=== PATIENT | female | born 1945 | race Caucasian/White ===

== ENCOUNTER 2016-05-31 08:15 | Day surgery (SDC) | payer MEDICARE, OTHER ==
[~2016-05-31 08:15] MED LIST: DIPRIVAN 200 MG/20 ML IV ONE
[2016-05-31] MEDS ORDERED: Lactated Ringers 1,000 ML IV ONE ×2 (08:57→11:33)
[2016-05-31] MEDS ORDERED: TETRACAINE 0.5% STERI-UNIT SOL OP ONE ×2 (09:00)
[2016-05-31] MEDS ORDERED: Lactated Ringers 1,000 ML IV SCH (09:00)
[2016-05-31] MEDS ORDERED: Ak-Dilate OPHTHALMIC*** 0.71 ML, Cyclogyl 1% OPHTH SOL 5 ML 0.71 ML, GATIFLOXACIN 0.5% ... OP ONE ×4 (09:00)
[2016-05-31] MEDS ORDERED: Zofran 4 MG/2 ML VIAL IV PRN (10:00)
[2016-05-31] MEDS ORDERED: ACETAZOLAMIDE 250 MG TABLET PO ONE (10:00)
[2016-05-31] MEDS ORDERED: LIDOCAINE HCL 1% AMPUL 5 ML IJ ONE (10:00)
[2016-05-31] MEDS ORDERED: BSS 500 ML, Fortaz/Tazicef 1 GM** 0.2 G IO ONE ×2 (10:00)
[2016-05-31] MEDS ORDERED: Epinephrine Preservative Free 1 MG/ML INTRAOP ONE (10:00)
[2016-05-31] MEDS ORDERED: BETADINE 5% OPHTHALMIC 30 ML OP ONE (10:00)
--- NOTE | 2016-05-31 12:24 | OP ---
DATE/TIME OF OPERATION: 05/31/2016 1125 TIME DICTATED: 1206 PREOPERATIVE DIAGNOSIS: Senile cataract of right eye. POSTOPERATIVE DIAGNOSIS: Senile cataract of right eye. SURGEON: El Nice MD POSTING CLERK: None. OPERATION: Cataract extraction of right eye with an intraocular lens implant STANDARD COMPLEX ___X___ ANESTHESIA: MAC. ___X___ Monitored anesthesia care in combination with topical and intra-cameral anesthesia (because of the established specific risk of reflux, arrhythmias, or an anxiety attack associated with ocular manipulation as well as difficulty of the order analyst to manage such potentially catastrophic events while simultaneously attempting to complete the surgical procedure, it was deemed necessary for the patient's safety to have an anesthesiologist or a nurse community recreation programmer present during the procedure whenever possible. The anesthesiologist or the nurse community recreation programmer was utilized to monitor and regulate the intravenous sedation of the patient, so the patient was cooperative, relaxed, and comfortable). Topical anesthesia using Tetracaine eye drops together with intra cameral anesthesia using Lidocaine 1% MPF. The nurse was utilized to monitor the patient. ANESTHESIA PROVIDER: Marcos Dolan CRNA. COMPLICATIONS: None. BLOOD LOSS: None. INDICATIONS: The patient is undergoing cataract surgery in the hopes of eliminating the visual complaints and difficulty. PROCEDURE: After arriving at the facility's outpatient surgery area, an IV was started; the patient was given 5 mg of p.o. Versed. (If an anesthesia provider was not monitoring the patient) The patient was then given topical anesthetic Tetracaine eye drops. A cotton pellet was soaked into a solution of a combination of Zymaxid 0.5%, Bharat-Synephrine 2.5% and Ocufen (other drops might have been substituted referenced in the patient's record). The pellet was inserted by the RN into the lower conjunctival cul-de-sac with a sterile forceps and left for 20 minutes. The pellet was then removed by the RN with a sterile forceps before taking the patient to the operating room. The preoperative area nurse identified the patient and marked the correct eye to be operated on. I identified the correct eye to be operated on and marked it appropriately in the outpatient surgery area. The patient was then taken into the operating room. Tetracaine eye drops were installed again in the correct eye. The eyelids and the lashes and the lid margins were scrubbed with Betadine solution. One drop of the diluted Betadine solution was placed in the conjunctival cul-de-sac for 45 seconds and then was irrigated. A drop of Tetracaine Gel was placed in the conjunctival cul-de-sac. The patient's forehead was taped to secure it during the procedure. The patient was monitored. The patient was then draped in the usual way for this procedure. An eye speculum was used to separate the eyelids. The eye was then fixated and a temporal 2.5 mm incision was made in the clear cornea temporally at the limbus. Through the incision, 0.25 cc of 1% non-preserved lidocaine was injected into the anterior chamber for intracameral anesthesia. The anterior chamber was then filled with viscoelastic. __X___ The pupil was small. I felt that it would be safer to mechanically dilate the pupil. A Malyugin ring was used at this point which dilated the pupil. That was removed at the end of the procedure prior to aspiration of the viscoelastic from the anterior chamber and posterior to the intraocular lens implant. The cataract had a great amount of cortical changes. That rendered seeing the anterior capsule difficult for a safe performance of an anterior capsulotomy. I injected an air bubble into the anterior chamber. I then injected 1 ML of vision blue solution into the anterior chamber. The vision blue solution was irrigated from the anterior chamber after 30 seconds. The anterior capsule was stained which facilitated performing the anterior capsulotomy safely. After that was completed, a cystotome was introduced into the anterior chamber and a round anterior capsulotomy was performed. The capsule was removed by a forceps. Hydrodissection was next carried utilizing a 25-gauge cannula and balanced salt solution to delineate the cortical material from the capsule and the nucleus from the cortical material. The nucleus was rotated freely into the capsular bag with no difficulty. The phaco tip of the Som [employer] Phacoemulsifier was introduced into the anterior chamber and two grooves were made into the nucleus 90 degrees apart. Using two spatulas resulted into the nucleus being fractured into four quadrants. The phaco tip was then used to remove each quadrant of the nucleus. Viscoelastic was used during this process to protect the corneal endothelium. Once the entire nucleus was removed, the phaco tip then was removed and the irrigation tip was introduced into the eye and the cortex was removed. The posterior capsule was polished. It was noticed that there was a tear into the posterior capsule with few vitreous strands into the pupil plan. An anterior vitrectomy was performed. A 21.50 diopter, [id number], posterior chamber lens implant, was inspected and found to be grossly normal. The implant was inserted into the implant injector cartridge; Viscoelastic again was introduced into the anterior chamber, which filled the capsular bag. The implant injector's cartridge tip was placed at the limbal wound and the posterior chamber implant was released into the capsular bag and rotated appropriately. The implant was found to be into the capsular bag and it was centered. 0.2 ml of Tri-Moxi was introduced via 27 gauge cannula into the vitreous cavity through the ciliary processes. Viscoelastic was aspirated from the anterior chamber and posterior to the intraocular lens implant from the capsular bag using the irrigating tip. The anterior chamber was irrigated and filled with 5 cc antibiotic solution (500 cc of BSS plus 2 ml of Fortaz 100 mg/ml) ( if patient was not allergic to the medication). The lips of the corneal incision were hydrated using BSS solution. The anterior chamber was checked and found to be water tight. ___X___ One drop each of antibiotic, steroid and NSAID drops (refer to chart for drops used) were placed in the conjunctival cul-de-sac of the operated eye. Patient tolerated the procedure quite well and left the operating room in satisfactory condition. DISCHARGE SUMMARY: The patient was released in stable condition. The patient and those with the patient were given an instruction sheet as of how to care for the eye after surgery as well as counseling on any abnormal laboratory studies by the postoperative RN. The patient was also given an appointment card for follow-up in the office and is to call immediately for any difficulties including but not limited to pain in the eye, decreased vision, discharge from the eye, headache and or fever. DISCHARGE DIAGNOSIS: Pseudophakia of right eye.
[2016-05-31 14:07] VITALS: PULSE 71
[2016-05-31 14:10] VITALS: BP 151/70; O2SAT 98
== END 2016-05-31 12:50 | disposition home or self-care (01) ==
LOC: SDC 08:15
PROVIDERS: ATTEND Ophthalmology
PROC: 08RJ3JZ Replacement of Right Lens with Synthetic Substitute, Percutaneous Approach (ICD-10-PCS; principal; 2016-05-31)
DX: H25.9 Unspecified age-related cataract (principal)
CPT/HCPCS: 66982 ×2; C1780; 00142; 99100; J0171; J2704; A9270-GY

== ENCOUNTER 2017-07-13 10:55 | Day surgery (SDC) | payer MEDICARE, OTHER ==
--- NOTE | 2017-07-12 09:15 | HP ---
DATE OF SURGERY: 07/13/2017 ANTICIPATED PROCEDURE: Colonoscopy. HISTORY OF PRESENT ILLNESS: A patient requiring colonoscopic examination. She has not had a recent colonoscopic examination. She has 14 inches out at age 18. PAST MEDICAL HISTORY: ALLERGIES: NONE. MEDICATIONS: None. PAST SURGICAL HISTORY: 14 inches removed at age 18. SOCIAL HISTORY: Negative. FAMILY HISTORY: Negative. PHYSICAL EXAMINATION: VITAL SIGNS: Normal. CHEST: Clear. COR: Regular. ABDOMEN: No palpable organomegaly or mass. IMPRESSION: The patient has not had recent colonoscopic examination. She presents for screening. She has had a previous colon resection.
[~2017-07-13 10:55] MED LIST changes: -DIPRIVAN 200 MG/20 ML IV ONE; +Sodium Chloride 0.9% 1000 ML 1,000 ML IV SCH
[2017-07-13] MEDS ORDERED: VERSED 5 MG/5 ML IV ONE (10:56)
[2017-07-13] MEDS ORDERED: DEMEROL 50 MG IJ ONE (10:56)
[2017-07-13] MEDS ORDERED: Lactated Ringers 1,000 ML IV ONE (11:04)
[2017-07-13] MEDS: Lactated Ringers 1,000 ML IV SCH (11:21)
--- NOTE | 2017-07-13 13:02 | OP ---
SURGERY DATE/TIME: 07/13/2017 1200 PREOPERATIVE DIAGNOSIS: Screening. POSTOPERATIVE DIAGNOSIS: Normal examination. PROCEDURE: Colonoscopy complete to cecum. SURGEON: Ramón Nguyen M.D. ANESTHESIA: IV sedation. COMPLICATIONS: None. CONDITION: Stable. INDICATION: The patient requiring evaluation. examination. DESCRIPTION OF PROCEDURE: Taken to the endoscopy suite. Time out performed. IV sedation titrated. Oximetry kept over 90%. Good satisfaction level and anesthetic level was present. Anal digital examination was normal. The scope introduced. The patient was doing well. The scope advanced up to the cecum. Base of the cecum, ileocecal valve, ascending, hepatic, transverse, splenic, descending, sigmoid, rectum and anus was normal. IMPRESSION: Normal examination. PLAN: Follow up five years.
[2017-07-13 14:08] VITALS: BP 108/53; PULSE 70; O2SAT 98
== END 2017-07-13 14:00 | disposition home or self-care (01) ==
LOC: SDC 10:55
PROVIDERS: ATTEND Surgery
DX: Z12.11 Encounter for screening for malignant neoplasm of colon (principal); Z90.49 Acquired absence of other specified parts of digestive tract
CPT/HCPCS: J2175; J2250

== ENCOUNTER 2018-05-18 15:22 | Observation (INO) | payer MEDICARE, OTHER ==
[2018-05-18] MEDS ORDERED: Sodium Chloride 0.9% 1000 ML 1,000 ML IV SCH (16:00)
[2018-05-18] MEDS ORDERED: NITRO-BID 2% UD PACKETS TOP ONE (16:14)
[2018-05-18] MEDS ORDERED: BABY ASPIRIN 81 MG CHEW PO ONE (16:14)
--- NOTE | 2018-05-18 16:14 | ERPHSYRPT ---
- History of Present Illness Time Seen by Provider: 05/18/18 15:40 Historian: patient, family, EMS Exam Limitations: clinical condition Patient Subjective Stated Complaint: episode of vomiting x 1 and feeling weak and dizzy after.layed down on floor after. denies falling.. episode of right sided CP that is gone at this time. has been under alot of stress. Triage Nursing Assessment: alert and anxious with c/o an episode of vomiting x1 that led to weakness and dizziness. dizziness has resolved prior to arrival.. neuro intact. states right sided CP is gone now too. no nausea at this time. Physician History: PATIENT WITH A HISTORY OF HYPERTENSION COMPLAINS OF ACUTE ONSET OF DIZZINESS, NAUSEA, VOMITING ASSOCIATED WITH RIGHT STERNAL CHEST PAIN TIGHTNESS. 45 MINUTES PREVIOUS TO ARRIVAL. STATES SHE BECAME EXTREMELY WEAK, LEANED ONTO THE FLOOR IN A LEFT LATERAL DECUBITUS POSITION, HOWEVER ANOTHER FAMILY MEMBER STATES A RELATIVE HAD TO AWAKEN THE PATIENT WHILE LYING ON THE FLOOR. PATIENT STATES CHEST PAIN AND DIZZINESS RESOLVED. SHE DENIES HEADACHE, BLURRED VISION, SLURRED SPEECH, DIZZINESS, DIAPHORESIS, PALPITATIONS, RADIATION OF PAIN TO HER NECK, JAW OR ARMS. Timing/Duration: today Activities at Onset: activity Quality: other (DENIES CHEST PAIN UPON ARRIVAL) Location: substernal Chest Pain Radiation: no radiation Severity of Pain-Max: mild Severity of Pain-Current: none Modifying Factors: Improves With: nothing Associated Symptoms: nausea, vomiting, weakness, dizziness Nitro Today/Relief: provided by ED Aspirin Treatment Today: 81 mg x 4, provided by ED Allergies/Adverse Reactions: No Known Drug Allergies Allergy (Unverified 05/18/18 15:41) Home Medications: Aspirin EC 81 mg [Ecotrin 81 mg] 81 mg PO DAILY 05/18/18 [History] Clopidogrel Bisulfate 75 mg [PLAVIX 75 MG Tablet] 75 mg PO DAILY 05/18/18 [History] Isosorbide Mononitrate 30 mg [Imdur 30 MG] 30 mg PO DAILY 05/18/18 [History ] Lisinopril [Zestril] 2.5 mg PO DAILY 05/18/18 [History] Pravastatin Sodium [Pravachol] 40 mg PO HS 05/18/18 [History] Rosuvastatin Calcium [Crestor] 20 mg PO HS 05/18/18 [History] hydroCHLOROthiazide [Hydrochlorothiazide] 12.5 mg PO DAILY 05/18/18 [History] Hx Influenza Vaccination/Date Given: No - Review of Systems Constitutional: No Fever, No Chills Eyes: No Symptoms Ears, Nose, & Throat: No Symptoms Respiratory: No Symptoms, No Cough, No Dyspnea Cardiac: Chest Pain, No Edema, No Syncope Abdominal/Gastrointestinal: Nausea, Vomiting, No Abdominal Pain, No Diarrhea Genitourinary Symptoms: No Symptoms, No Dysuria Musculoskeletal: No Symptoms, No Back Pain, No Neck Pain Skin: Skin Lesions, No Rash Neurological: Dizziness, No Focal Weakness, No Sensory Changes Psychological: No Symptoms Endocrine: No Symptoms All Other Systems: Reviewed and Negative - Past Medical History Pertinent Past Medical History: Yes Cardiac History: Coronary Artery Disease, High Cholesterol, Hypertension GI Medical History: Colorectal Cancer - Past Surgical History Past Surgical History: Yes Gastrointestinal: Colon Resection - Social History Smoking Status: Never smoker Exposure to second hand smoke: No Drug Use: none Patient Lives Alone: No - Female History Hx Now: No - Nursing Vital Signs Nursing Vital Signs: Initial Vital Signs Temperature 99.0 F 05/18/18 15:30 Pulse Rate 100 H 05/18/18 15:30 Respiratory Rate 18 05/18/18 15:30 Blood Pressure 178/80 05/18/18 15:30 O2 Sat by Pulse Oximetry 99 05/18/18 15:30 Pain Scale Pain Intensity 0 - Physical Exam General Appearance: no apparent distress, alert Eye Exam: PERRL/EOMI, eyes nml inspection Ears, Nose, Throat Exam: normal ENT inspection, moist mucous membranes Neck Exam: normal inspection, non-tender, supple, full range of motion Respiratory Exam: normal breath sounds, lungs clear, No respiratory distress Cardiovascular Exam: regular rate/rhythm, normal heart sounds Gastrointestinal/Abdomen Exam: soft, normal bowel sounds, No tenderness, No mass Back Exam: normal inspection, No CVA tenderness, No vertebral tenderness Extremity Exam: normal inspection, normal range of motion Neurologic Exam: alert, oriented x 3, cooperative, normal mood/affect, sensation nml, No motor deficits Skin Exam: normal color, warm, dry SpO2 Interpretation: normal SpO2: 99 - Course EKG Interpreted by Me: RATE, Sinus Rhythm, Sinus Tach (RATE 97), Other (NO ECTOPY OR ISCHEMIC CHANGES) - Radiology Exams Chest X-ray Interpretation: Interpreted by me, Negative, No Infiltrates - CT Exams Head CT Interpretation: Discussed w/radiologist, No/Intracranial Hemorrhag Ordered Tests: Active Orders 24 hr Category Date Time Status Clean Catch Urine Specimen STAT Care 05/18/18 15:42 Active EKG-ER Only STAT Care 05/18/18 15:42 Active Orthostatic Vital Signs STAT Care 05/18/18 15:42 Active Oxygen-ED Only Nasal Cannula 2 lpm Care 05/18/18 15:42 Active CHEST 1 VIEW (PORTABLE) Stat Exams 05/18/18 15:49 Taken HEAD WITHOUT CONTRAST [CT] Stat Exams 05/18/18 15:43 Taken CBC W DIFF Stat Lab 05/18/18 16:30 Completed CMP Stat Lab 05/18/18 16:30 Completed MAGNESIUM Stat Lab 05/18/18 16:30 Completed PROTIME WITH INR Stat Lab 05/18/18 16:30 Completed TROPONIN Q3H Lab 05/18/18 16:30 Completed TROPONIN Q3H Lab 05/18/18 19:00 Ordered TROPONIN Q3H Lab 05/18/18 22:00 Ordered TROPONIN Q3H Lab 05/19/18 01:00 Ordered TROPONIN Q3H Lab 05/19/18 04:00 Ordered UA W/RFX UR CULTURE Stat Lab 05/18/18 16:21 Completed Transfer Order Routine Transfer 05/18/18 Ordered Medication Summary Generic Name Dose Route Start Last Admin Trade Name Freq PRN Reason Stop Dose Admin Sodium Chloride 1,000 mls @ 50 mls/hr 05/18/18 16:00 05/18/18 16:28 Sodium Chloride 0.9% 1000 Ml IV 06/17/18 15:59 50 mls/hr .Q20H MIKE Administration Discontinued Medications Generic Name Dose Route Start Last Admin Trade Name Freq PRN Reason Stop Dose Admin Aspirin 324 mg 05/18/18 16:14 05/18/18 16:34 Baby Aspirin 81 Mg Chew PO 05/18/18 16:15 324 mg STAT ONE Administration Aspirin Confirm 05/18/18 16:24 Baby Aspirin 81 Mg Chew Administered 05/18/18 16:25 Dose 324 mg .ROUTE .STK-MED ONE Nitroglycerin 1 gm 05/18/18 16:14 05/18/18 16:30 Nitro-Bid 2% Ud Packets TOP 05/18/18 16:15 1 gm STAT ONE Administration Nitroglycerin Confirm 05/18/18 16:24 Nitro-Bid 2% Ud Packets Administered 05/18/18 16:25 Dose 1 gm .ROUTE .STK-MED ONE Lab/Rad Data: Laboratory Result Diagrams 05/18/18 16:30 05/18/18 16:30 Laboratory Results 05/18/18 05/18/18 05/18/18 Range/Units 16:30 16:30 16:30 WBC (4.0-10.5) K/mm3 RBC (4.1-5.4) M/mm3 Hgb (12.0-16.0) gm/dl Hct (35-47) % MCV (78-100) fl MCH (26-32) pg MCHC (32-36) g/dl RDW (11.5-14.0) % Plt Count (150-450) K/mm3 MPV (6-9.5) fl Gran % (36.0-66.0) % Eos # (Auto) (0-0.5) Absolute Lymphs (auto) (1.0-4.6) Absolute Monos (auto) (0.0-1.3) Lymphocytes % (24.0-44.0) % Monocytes % (0.0-12.0) % Eosinophils % (0.00-5.0) % Basophils % (0.0-0.4) % Absolute Granulocytes (1.4-6.9) Basophils # (0-0.4) PT 11.6 (9.95-12.35) SECONDS INR 1.00 (0.8-3.0) Sodium (137-145) mmol/L Potassium (3.5-5.1) mmol/L Chloride (98-107) mmol/L Carbon Dioxide (22-30) mmol/L Anion Gap (5-15) MEQ/L BUN (7-17) mg/dL Creatinine (0.52-1.04) mg/dL Estimated GFR ML/MIN Glucose (74-106) mg/dL Calcium (8.4-10.2) mg/dL Magnesium 2.4 H (1.6-2.3) mg/dL Total Bilirubin (0.2-1.3) mg/dL AST (14-36) U/L ALT (0-35) U/L Alkaline Phosphatase (38-126) U/L Troponin I < 0.012 (0.000-0.034) ng/mL Serum Total Protein (6.3-8.2) g/dL Albumin (3.5-5.0) g/dL Urine Color (YELLOW) Urine Appearance (CLEAR) Urine pH (5-6) Ur Specific [place] (1.005-1.025) Urine Protein (Negative) Urine Ketones (NEGATIVE) Urine Blood (0-5) Dg/ul Urine Nitrite (NEGATIVE) Urine Bilirubin (NEGATIVE) Urine Urobilinogen (0-1) mg/dL Ur Leukocyte Esterase (NEGATIVE) Urine WBC (Auto) (0-5) /HPF Urine RBC (Auto) (0-2) /HPF U Epithel Cells (Auto) (FEW) /HPF Urine Bacteria (Auto) (NEGATIVE) /HPF Urine Culture Reflexed (NO) Urine Glucose (NEGATIVE) mg/dL 05/18/18 05/18/18 05/18/18 Range/Units 16:30 16:30 16:21 WBC 5.4 (4.0-10.5) K/mm3 RBC 4.70 (4.1-5.4) M/mm3 Hgb 14.0 (12.0-16.0) gm/dl Hct 41.8 (35-47) % MCV 88.9 (78-100) fl MCH 29.8 (26-32) pg MCHC 33.5 (32-36) g/dl RDW 13.2 (11.5-14.0) % Plt Count 209 (150-450) K/mm3 MPV 8.2 (6-9.5) fl Gran % 57.6 (36.0-66.0) % Eos # (Auto) 0.15 (0-0.5) Absolute Lymphs (auto) 1.48 (1.0-4.6) Absolute Monos (auto) 0.62 (0.0-1.3) Lymphocytes % 27.5 (24.0-44.0) % Monocytes % 11.5 (0.0-12.0) % Eosinophils % 2.8 (0.00-5.0) % Basophils % 0.6 (0.0-0.4) % Absolute Granulocytes 3.11 (1.4-6.9) Basophils # 0.03 (0-0.4) PT (9.95-12.35) SECONDS INR (0.8-3.0) Sodium 140 (137-145) mmol/L Potassium 4.6 (3.5-5.1) mmol/L Chloride 104 (98-107) mmol/L Carbon Dioxide 28 (22-30) mmol/L Anion Gap 12.0 (5-15) MEQ/L BUN 28 H (7-17) mg/dL Creatinine 1.61 H (0.52-1.04) mg/dL Estimated GFR 33.3 ML/MIN Glucose 76 (74-106) mg/dL Calcium 9.5 (8.4-10.2) mg/dL Magnesium (1.6-2.3) mg/dL Total Bilirubin 0.50 (0.2-1.3) mg/dL AST 35 (14-36) U/L ALT 21 (0-35) U/L Alkaline Phosphatase 74 (38-126) U/L Troponin I (0.000-0.034) ng/mL Serum Total Protein 7.8 (6.3-8.2) g/dL Albumin 4.6 (3.5-5.0) g/dL Urine Color STRAW (YELLOW) Urine Appearance CLEAR (CLEAR) Urine pH 7.0 (5-6) Ur Specific [place] 1.005 (1.005-1.025) Urine Protein NEGATIVE (Negative) Urine Ketones NEGATIVE (NEGATIVE) Urine Blood MODERATE (0-5) Dg/ul Urine Nitrite NEGATIVE (NEGATIVE) Urine Bilirubin NEGATIVE (NEGATIVE) Urine Urobilinogen NEGATIVE (0-1) mg/dL Ur Leukocyte Esterase NEGATIVE (NEGATIVE) Urine WBC (Auto) 3-5 (0-5) /HPF Urine RBC (Auto) 3-5 (0-2) /HPF U Epithel Cells (Auto) NONE (FEW) /HPF Urine Bacteria (Auto) RARE (NEGATIVE) /HPF Urine Culture Reflexed NO (NO) Urine Glucose NEGATIVE (NEGATIVE) mg/dL - Progress Progress Note: 05/18/18 16:25 IV NORMAL SALINE 50ML/HR Discussed with Dr.: Muhammad (DISCUSSED WITH DR MUHAMMAD AT 1800 FOR OBSERVATION) - Departure Time of Disposition: 18:30 Departure Disposition: Observation Clinical Impression: SYNCOPE, VERTIGO Condition: Stable Critical Care Time: No Referrals: VERN MUSTAFA [Primary Care Provider] -
[2018-05-18] MEDS ORDERED: NITRO-BID 2% UD PACKETS ONE (16:24)
[2018-05-18] MEDS ORDERED: Sodium Chloride 0.9% 1000 ML 1,000 ML ONE (16:24)
[2018-05-18] MEDS ORDERED: BABY ASPIRIN 81 MG CHEW ONE (16:24)
[2018-05-18 16:34] LABS: BASOPHIL % 0.6 % (0.0-0.4); Basophil (Absolute #) 0.03 (0-0.4); Eosinophil % 2.8 % (0.00-5.0); Eosinophil (Absolute #) 0.15 (0-0.5); Granulocyte Absolute (ANC) 3.11 (1.4-6.9); Granulocytes % 57.6 % (36.0-66.0); Hematocrit 41.8 % (35-47); Lymphocyte (Absolute #) 1.48 (1.0-4.6); Lymphocytes % 27.5 % (24.0-44.0); Mean Cell Volume 88.9 fl (78-100); Mean Corpuscular Hemoglobin 29.8 pg (26-32); Mean Corpuscular Hgb Concent. 33.5 g/dl (32-36); Mean Platelet Volume 8.2 fl (6-9.5); Monocyte (Absolute #) 0.62 (0.0-1.3); Monocytes % 11.5 % (0.0-12.0); Platelet Count 209 K/mm3 (150-450); Red Cell Distribution Width 13.2 % (11.5-14.0); White Blood Count 5.4 K/mm3 (4.0-10.5)
[2018-05-18 16:37] LABS: Appearance CLEAR (CLEAR); Bacteria RARE /HPF (NEGATIVE); Bilirubin NEGATIVE (NEGATIVE); Blood MODERATE Ery/ul (0-5); Glucose NEGATIVE (NEGATIVE); Ketones NEGATIVE (NEGATIVE); Leukocyte Esterase NEGATIVE (NEGATIVE); Nitrite NEGATIVE (NEGATIVE); Protein,Urine Dip NEGATIVE (Negative); Specific Gravity 1.005 (1.005-1.025); Urobilinogen NEGATIVE mg/dL (0-1)
[2018-05-18 16:52] LABS: PROTIME 11.6 SECONDS (9.95-12.35)
[2018-05-18 16:55] LABS: ALBUMIN 4.6 g/dL (3.5-5.0); BILIRUBIN,TOTAL 0.5 mg/dL (0.2-1.3); Calcium 9.5 mg/dL (8.4-10.2); Creatinine 1 1.61 mg/dL (0.52-1.04); Potassium 4.6 mmol/L (3.5-5.1); Total Protein 7.8 g/dL (6.3-8.2)
[2018-05-18] MEDS ORDERED: Zofran 4 MG/2 ML VIAL IV PRN (20:15)
[2018-05-18] MEDS ORDERED: TYLENOL 325 MG PO PRN (20:15)
[2018-05-18] MEDS ORDERED: ANTIVERT 25 MG PO PRN (20:15)
[2018-05-18] MEDS ORDERED: Senokot-S Tablet PO PRN (20:15)
[2018-05-18] MEDS ORDERED: MILK OF MAGNESIA 30 ML PO PRN (20:15)
[2018-05-18] MEDS ORDERED: MAALOX ES 30 ML UNIT DOSE PO PRN (20:15)
[2018-05-18] MEDS ORDERED: Nitrostat 0.4 MG Tablet SL PRN (20:15)
--- NOTE | 2018-05-18 21:46 | XRAY ---
Indication: Syncope. Dizziness. Multiple contiguous axial images obtained through the head without contrast. Comparison: None. Age-appropriate global atrophy and minimal periventricular degenerative micro-ischemia bilaterally. No acute intracranial hemorrhage, abnormal extra-axial fluid collection, or mass effect. Fourth ventricle is midline without hydrocephalus. Bony calvarium intact. Partial opacification of visualized right maxillary sinus. Remaining visualized paranasal sinuses and mastoid air cells are clear. Impression: Normal aging brain including atrophy and degenerative micro-ischemia. No acute intracranial abnormalities. Incidental paranasal sinus disease. CTDI 69.25
--- NOTE | 2018-05-18 21:46 | XRAY ---
Indication: Chest pain and dizziness. Comparison: None Portable apical lordotic chest is clear with incidental overlying monitoring leads. Heart and mediastinal structures within normal limits. Bony thorax intact with mild degenerative changes. Impression: Nonacute chest.
[2018-05-18] MEDS ORDERED: ZOCOR 20MG PO SCH (22:00)
[2018-05-18] MEDS ORDERED: Zestril 5 MG ONE (22:07)
[2018-05-18] MEDS ORDERED: PLAVIX 75 MG Tablet ONE (22:08)
[2018-05-18] MEDS ORDERED: hydroDIURIL 25 MG ONE (22:08)
[2018-05-18] MEDS ORDERED: Imdur 30 MG ONE (22:08)
[2018-05-18] MEDS ORDERED: PLAVIX 75 MG Tablet PO SCH (22:51)
[2018-05-18] MEDS ORDERED: Imdur 30 MG PO SCH (22:52)
[2018-05-18] MEDS ORDERED: hydroDIURIL 25 MG PO SCH (22:52)
[2018-05-18] MEDS ORDERED: Zestril 5 MG PO SCH (22:52)
[2018-05-19 05:53] LABS: Risk Ratio 2.6
[2018-05-19] MEDS ORDERED: PLAVIX 75 MG Tablet PO SCH ×2 (10:00→22:00)
[2018-05-19] MEDS ORDERED: Imdur 30 MG PO SCH ×2 (10:00→22:00)
[2018-05-19] MEDS ORDERED: Zestril 5 MG PO SCH ×2 (10:00→22:00)
[2018-05-19] MEDS ORDERED: Ecotrin 325 MG PO SCH (10:00)
[2018-05-19] MEDS ORDERED: hydroDIURIL 25 MG PO SCH ×2 (10:00→22:00)
--- NOTE | 2018-05-19 12:03 | PCM.DCORD ---
- Discharge Discharge Date: 05/19/18 Disposition: Home, Self-Care Condition: Good Prescriptions: New Acetaminophen 325 mg [Tylenol 325 mg] 650 mg PO Q4H PRN PRN tablet PRN Reason: Pain And/Or Fever Continue Aspirin EC 81 mg [Ecotrin 81 mg] 81 mg PO DAILY Isosorbide Mononitrate 30 mg [Imdur 30 MG] 30 mg PO DAILY hydroCHLOROthiazide [Hydrochlorothiazide] 12.5 mg PO DAILY Rosuvastatin Calcium [Crestor] 20 mg PO HS Lisinopril [Zestril] 2.5 mg PO DAILY Clopidogrel Bisulfate 75 mg [PLAVIX 75 MG Tablet] 75 mg PO DAILY Discontinued Pravastatin Sodium [Pravachol] 40 mg PO HS Instructions: Vertigo (a Type of Dizziness) (DC), Syncope (Fainting) (DC) Additional Instructions: You should only be taking one statin. 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 Follow up with: JERARDO FELTON MD [Primary Care Provider] - 05/25/18 11:15 am Kristian Rooney MD [CONSULTING PHYSICIAN] - 1 Week Forms: Discharge Instructions
[2018-05-19 13:43] VITALS: BP 101/56; PULSE 75; O2SAT 94
--- NOTE | 2018-05-21 08:25 | HP ---
HISTORY OF PRESENT ILLNESS: This is a 73 year-old patient of Dr. García who presented to the emergency department. She reports that she had been cooking at home for 200 people in preparation for her granddaughter's wedding today. She states she felt weak and sick and laid down on the floor at home. Her family reported they then found her there and had to arouse her. She did not remember them arousing her. She reports she had some right-sided chest pressure. She reports stress at home with preparing for the wedding. She has no history of other episodes like this. She reports she does have coronary artery disease and sees Dr. Rooney every six months and is due to see him again in three weeks. She denies having any stents. She reports she is using medication management and exercise. She reports her chest pain has gone away. She has not had any shortness of breath. No nausea or vomiting. She has been able to ambulate in her room. She would like to go home today and is very anxious about going to her granddaughters wedding. REVIEW OF SYSTEMS: No nausea, vomiting or shortness of breath at this time. No heart palpitations. No cough. No rhinorrhea. No fatigue. Otherwise review of systems as noted in the history of present illness. PAST MEDICAL HISTORY: Coronary artery disease, hypertension, hyperlipidemia. PAST SURGICAL HISTORY: Part of her colon removed. Cholecystectomy. Hysterectomy. Meniscus repair. MEDICATIONS: Please see the medication reconciliation list. ALLERGIES: NKDA. SOCIAL HISTORY: She denies tobacco use or alcohol use. She is and lives with her . FAMILY HISTORY: Her mother when the patient was 3 years old from a blood clot and her father from liver cancer when he was 77. PHYSICAL EXAMINATION: VITAL SIGNS: Temperature current 97.9F, temperature max 98.1F, heart rate 68 to 84, respiratory rate 18 to 22, blood pressure 100 to 134 over 57 to 67. Oxygen saturation 94 to 95% on room air. GENERAL: The patient is a pleasant talkative lady lying in bed in no acute distress with her at the bedside. CVS: She has a regular rate and rhythm. No murmurs, gallops or rubs are appreciated. CHEST: Clear to auscultation bilaterally. No crackles or wheezes. ABDOMEN: Soft, nontender, nondistended with normal bowel sounds. EXTREMITIES: No clubbing, cyanosis or edema. SKIN: Warm, dry and intact. LABORATORY DATA AND TESTS: She has had four negative troponins. Creatinine was 1.6. Fasting lipid profile and LDL 71. UA negative. CBC within normal limits. EKG is sinus rhythm with no ST-T wave changes. Heart rate 74. ASSESSMENT AND PLAN: 1) CHEST PAIN: She has ruled out for an acute myocardial infarction. I asked them to discontinue her Nitro-paste. If she does okay having this off will plan to discharge her to home to follow up with her primary care doctor as well as Dr. Rooney. 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 Will resume all of her home medications if she is discharged, and we have resumed those here in the hospital besides the duplicate statin order. 2) DIZZINESS: This has also resolved. The patient reports she has had carotid Doppler's done with Dr. Rooney in the past. Again, will have her follow up with her primary care doctor. 3) HYPERTENSION: Currently well controlled. 4) HYPERLIPIDEMIA: Continue with statin.
== END 2018-05-19 12:30 | disposition home or self-care (01) ==
LOC: ED 15:22 → MED SURG 20:10 → EDUNIT# 20:10
PROVIDERS: ADMIT Family Medicine; ATTEND Family Medicine
DX: R07.9 Chest pain, unspecified (principal); R42 Dizziness and giddiness; I10 Essential (primary) hypertension; E78.5 Hyperlipidemia, unspecified; I25.10 Atherosclerotic heart disease of native coronary artery without angina pectoris
CPT/HCPCS: 36415; 70450; 71045; 80053; 80061; 81001; 83721; 83735; 84484; 85025; 85610; 93005; 94760; 99285; G0378; A9270-GY

== ENCOUNTER 2020-01-01 08:38 | Emergency (ER) | payer MEDICARE ==
--- NOTE | 2020-01-01 09:07 | ERPHSYRPT ---
- History of Present Illness Time Seen by Provider: 01/01/20 08:55 Source: patient Exam Limitations: no limitations Patient Subjective Stated Complaint: Left arm pain Triage Nursing Assessment: Patient ambulated back to ED and transferred self to bed. Patient A+O X 3. Patient's skin pink, warm and dry. Patient states she fell on her left arm at the gym yesterday. Patient states she got up to go to gym and her left arm hurts so bad. Patient's complains of constant aching intermittent, sharp pain to bicep muscle on left upper extremity. No visible bruising or injuries noted. Physician History: This is a right-handed 74-year-old white female with history of hypertension who is also on Plavix and injured her left upper arm yesterday. Patient was working out at the gym and slipped and fell onto her left upper arm. This occurred approximately 24 hours ago and in that 24 hours since her injury, she has complained of achiness. She did not hit her head she does not have any neck complaints. She has full range of motion but is complaining of pain primarily in the left upper arm. Occurred: yesterday Method of Injury: fell Quality: constant, aching Severity of Pain-Max: moderate Severity of Pain-Current: moderate Extremities Pain Location: shoulder: left, arm: left Modifying Factors: Improves With: movement Associated Symptoms: none Allergies/Adverse Reactions: NKA Allergy (Verified 01/01/20 08:46) Home Medications: Clopidogrel Bisulfate 75 mg [PLAVIX 75 MG Tablet] 75 mg PO DAILY 05/18/18 [History] Rosuvastatin Calcium [Crestor] 20 mg PO HS 05/18/18 [History] lisinopriL [Zestril] 2.5 mg PO DAILY 05/18/18 [History] Hx Tetanus, Diphtheria Vaccination/Date Given: No Hx Influenza Vaccination/Date Given: Yes Hx Pneumococcal Vaccination/Date Given: No Immunizations Up to Date: Yes Travel Risk - International Travel Have you traveled outside of the country in past 3 weeks: No - Coronavirus Screening Are you exhibiting any of the following symptoms?: No Close contact with a COVID-19 positive Pt in past 14-21 Days: No - Review of Systems Constitutional: No Symptoms Eyes: No Symptoms Ears, Nose, & Throat: No Symptoms Respiratory: No Symptoms Cardiac: No Symptoms Abdominal/Gastrointestinal: No Symptoms Genitourinary Symptoms: No Symptoms Musculoskeletal: Fall, Injury, No Deformity Skin: No Symptoms Neurological: No Symptoms Psychological: No Symptoms Endocrine: No Symptoms Hematologic/Lymphatic: No Symptoms Immunological/Allergic: No Symptoms All Other Systems: Reviewed and Negative - Past Medical History Pertinent Past Medical History: Yes Neurological History: No Pertinent History ENT History: Cataracts Cardiac History: Hypertension, Other Respiratory History: Other Endocrine Medical History: No Pertinent History Musculoskeletal History: Fractures GI Medical History: Colorectal Cancer History: No Pertinent History Psycho-Social History: No Pertinent History Female Reproductive Disorders: No Pertinent History Other Medical History: Mild Depression, Coronary arteriosclerosis, venous insufficiency of leg, prurigo nodularis, sleep disorder, abnormal echocardiogram, closed fx of femoral condyl. Sx Hx: colonoscopy (1995, 2017), 14" colon removed d/t blockage (non-cancerous), knee surgery, cholecystectomy, hysterectomy - Past Surgical History Past Surgical History: Yes Neuro Surgical History: No Pertinent History Cardiac: Cardiac Catheterization Respiratory: No Pertinent History Gastrointestinal: Colon Resection Genitourinary: No Pertinent History Musculoskeletal: Other Female Surgical History: Hysterectomy Other Surgical History: miniscus repair - Social History Smoking Status: Never smoker Exposure to second hand smoke: No Drug Use: none Patient Lives Alone: No - Female History Hx Now: No - Nursing Vital Signs Nursing Vital Signs: Initial Vital Signs Temperature 98.4 F 01/01/20 08:46 Pulse Rate 78 01/01/20 08:46 Respiratory Rate 18 01/01/20 08:46 Blood Pressure 120/65 01/01/20 08:46 O2 Sat by Pulse Oximetry 99 01/01/20 08:46 Pain Scale Pain Intensity 9 - Physical Exam General Appearance: no apparent distress, alert, anxiety Eyes, Ears, Nose, Throat Exam: normal ENT inspection, moist mucous membranes Neck Exam: normal inspection, non-tender, supple, full range of motion Cardiovascular/Respiratory Exam: chest non-tender Abdominal Exam: non-tender Back Exam: normal inspection, normal range of motion, No CVA tenderness, No vertebral tenderness Shoulder Exam: normal inspection, no evidence of injury, normal ROM, soft tissue tenderness, No deformity Elbow/Forearm Exam: normal inspection, non-tender, no evidence of injury, normal ROM Wrist Exam: normal inspection, non-tender, no evidence of injury, normal ROM Hand Exam: normal inspection, non-tender, no evidence of injury, normal ROM Neuro/Tendon Exam: normal sensation, normal motor functions, normal tendon functions, responds to pain, no evidence tendon injury Mental Status Exam: alert, oriented x 3, cooperative Skin Exam: normal color, warm, dry SpO2 Interpretation: normal SpO2: 99 O2 Delivery: Room Air - Course Nursing assessment & vital signs reviewed: Yes Ordered Tests: Active Orders 24 hr Category Date Time Status HUMERUS Stat Exams 01/01/20 09:07 Taken SHOULDER Stat Exams 01/01/20 09:07 Taken - Progress Progress: pain not gone completely, re-examined Progress Note: 01/01/20 10:37 X-ray of the left shoulder reveals no evidence of any dislocation or acute fracture X-ray of the left humerus reveals no evidence of any acute fracture. Counseled pt/family regarding: diagnosis, need for follow-up, rad results - Departure Departure Disposition: Home Clinical Impression: Fall with injury, Contusion of left upper arm Condition: Stable Critical Care Time: No Referrals: JOSUE LONG [Primary Care Provider] - Additional Instructions: Ice pack to tender area 3 times a day for the next 48 hours. Ibuprofen 600 mg orally with food 3 times a day for the next 5 days. Follow-up with the [facility] orthopedic clinic or your primary care physician if symptoms persist beyond the next 48 to 72 hours. Prescriptions: Hydrocodone/APAP 5-325 Tab^^^ [[place] 5-325 Tablet^^^] 1 tab PO Q8H PRN PRN #8 tablet MDD 3 PRN Reason: Pain
[2020-01-01 10:01] VITALS: BP 116/57; PULSE 70
[2020-01-01 10:38] VITALS: O2SAT 99
--- NOTE | 2020-01-03 14:13 | XRAY ---
Indication: Pain following fall. Comparison: None 3 view left shoulder demonstrates mild osteopenia, mild AC degenerative arthropathy, and mild degenerative changes throughout the visualized spine. No other bony, articular, or soft tissue abnormalities.
--- NOTE | 2020-01-03 14:13 | XRAY ---
Indication: Pain following fall. Comparison: None 2 view left humerus demonstrates mild osteopenia, tiny medial/lateral epicondyle spur, and mild acromioclavicular degenerative arthropathy. No other bony, articular, or soft tissue abnormalities.
== END 2020-01-01 10:46 | disposition home or self-care (01) ==
LOC: ED 08:38
DX: S40.022A Contusion of left upper arm, initial encounter (principal); W18.30XA Fall on same level, unspecified, initial encounter; Y93.89 Activity, other specified; Y92.39 Other specified sports and athletic area as the place of occurrence of the external cause; M79.622 Pain in left upper arm; Z85.038 Personal history of other malignant neoplasm of large intestine
CPT/HCPCS: 73030; 73060; 99284

== ENCOUNTER 2020-11-01 17:38 | Emergency (ER) | payer MEDICARE ==
[2020-11-01] MEDS ORDERED: Cyclobenzaprine 10 MG PO ONE (19:41)
[2020-11-01] MEDS ORDERED: MORPHINE SULFATE 4 MG INJ IM ONE (19:41)
--- NOTE | 2020-11-01 19:49 | ERPHSYRPT ---
- History of Present Illness Time Seen by Provider: 11/01/20 19:11 Source: patient Exam Limitations: no limitations Patient Subjective Stated Complaint: pt reports right sided sciatic pain, reports her normal stretching and medication is not helping. states she cannot find a position of comfort. Triage Nursing Assessment: pt is aox3, pupils perrl, afebrile, appears uncomfortable, resps easy and non labored, cap refill < 3 seconds, radial pulses strong and equal. ROM, sensation intact, pain increased with movement. Physician History: 75 years old female presented in the ER with chief complaint of right lower back pain with radiation to right upper posterior thigh for the last 2 weeks, intermittent, worse with activity and better with resting. For the last couple of days pain is not going away despite using routine maneuvers of stretching which usually help. Denies any numbness tingling or weakness of lower extremities. No loss of bowel or bladder control. No perineal numbness. Pain is similar to previous episodes. Patient wants muscle relaxants which usually does help. Timing/Duration: week(s) (2), intermittent, gradual onset, worse Method of Injury: unknown Quality: stabbing Back Pain Location: paraspinous muscles Back Pain Radiation: lower legs Severity of Pain-Max: moderate Severity of Pain-Current: moderate Modifying Factors: Improves With: immobilization. Worsens With: movement Associated Symptoms: denies symptoms, lower back pain Previous symptoms: same symptoms as today Allergies/Adverse Reactions: NKA Allergy (Verified 11/01/20 18:38) Home Medications: Clopidogrel Bisulfate 75 mg [PLAVIX 75 MG Tablet] 75 mg PO DAILY 05/18/18 [History] Rosuvastatin Calcium [Crestor] 20 mg PO HS 05/18/18 [History] lisinopriL [Zestril] 2.5 mg PO DAILY 05/18/18 [History] Hx Tetanus, Diphtheria Vaccination/Date Given: Yes Hx Influenza Vaccination/Date Given: No Hx Pneumococcal Vaccination/Date Given: No Immunizations Up to Date: Yes Travel Risk - International Travel Have you traveled outside of the country in past 3 weeks: No - Coronavirus Screening Are you exhibiting any of the following symptoms?: No Close contact with a COVID-19 positive Pt in past 14-21 Days: No - Vaccine Status Have you recieved a Covid-19 vaccination: Yes Marketing Operations Analyst: Moderna - Vaccination Dates Date of 2cond Vaccination (if applicable): unk - Review of Systems Constitutional: No Symptoms Ears, Nose, & Throat: No Symptoms Respiratory: No Symptoms Cardiac: No Symptoms Abdominal/Gastrointestinal: No Symptoms Genitourinary Symptoms: No Symptoms Musculoskeletal: Back Pain Skin: No Symptoms Neurological: No Symptoms Psychological: No Symptoms Hematologic/Lymphatic: No Symptoms Immunological/Allergic: No Symptoms - Past Medical History Pertinent Past Medical History: Yes Neurological History: No Pertinent History ENT History: Cataracts Cardiac History: Hypertension, Other Respiratory History: Other Endocrine Medical History: No Pertinent History Musculoskeletal History: Fractures GI Medical History: Colorectal Cancer History: No Pertinent History Psycho-Social History: No Pertinent History Female Reproductive Disorders: No Pertinent History Other Medical History: Mild Depression, Coronary arteriosclerosis, venous insufficiency of leg, prurigo nodularis, sleep disorder, abnormal echocardiogram, closed fx of femoral condyl. Sx Hx: colonoscopy (1995, 2017), 14" colon removed d/t blockage (non-cancerous), knee surgery, cholecystectomy, hysterectomy - Past Surgical History Past Surgical History: Yes Neuro Surgical History: No Pertinent History Cardiac: Cardiac Catheterization Respiratory: No Pertinent History Gastrointestinal: Colon Resection Genitourinary: No Pertinent History Musculoskeletal: Other Female Surgical History: Hysterectomy Other Surgical History: miniscus repair - Social History Smoking Status: Never smoker Exposure to second hand smoke: No Drug Use: none Patient Lives Alone: No - Female History Hx Now: No - Nursing Vital Signs Nursing Vital Signs: Initial Vital Signs Pulse Rate 95 H 11/01/20 18:29 Respiratory Rate 20 11/01/20 18:29 Blood Pressure 126/68 11/01/20 18:29 O2 Sat by Pulse Oximetry 97 11/01/20 18:29 Pain Scale Pain Intensity 8 - Physical Exam General Appearance: no apparent distress, alert Eye Exam: PERRL/EOMI, eyes nml inspection Ears, Nose, Throat Exam: normal ENT inspection Neck Exam: normal inspection, supple, full range of motion Respiratory Exam: normal breath sounds, lungs clear Cardiovascular Exam: regular rate/rhythm, normal heart sounds Gastrointestinal Exam: soft, normal bowel sounds, No tenderness Back Exam: normal inspection, decreased range of motion, muscle spasm (Right sacroiliac area. No midline tenderness), other (Straight leg raising test mildly positive at 90 degrees elevation.), No vertebral tenderness Extremity Exam: normal inspection, normal range of motion, pelvis stable Neurologic Exam: alert, oriented x 3, cooperative, supervisor fitting II-XII nml as tested Skin Exam: normal color SpO2 Interpretation: normal SpO2: 97 O2 Delivery: Room Air Ordered Tests: Medication Summary Discontinued Medications Generic Name Dose Route Start Last Admin Trade Name Freq PRN Reason Stop Dose Admin Cyclobenzaprine HCl 10 mg 11/01/20 19:41 Cyclobenzaprine 10 Mg PO 11/01/20 19:42 STAT ONE Morphine Sulfate 4 mg 11/01/20 19:41 Morphine Sulfate 4 Mg Inj IM 11/01/20 19:42 STAT ONE - Progress Progress: improved Progress Note: 11/01/20 given morphine and Flexeril, on reevaluation feeling better. We will continue with Flexeril and very short course of narcotic pain medications for breakthrough pain. No perineal numbness, negative neuro exam in lower extremities. Do not think cauda equina. No midline tenderness. Do not think needs any imaging. Stable for discharge with outpatient follow-up. Discussed signs symptoms of worsening needing return to ER which she seems understanding. Counseled pt/family regarding: diagnosis, need for follow-up - Departure Departure Disposition: Home Clinical Impression: Low back strain Qualifiers: Encounter type: initial encounter Qualified Code(s): S39.012A - Strain of muscle, fascia and tendon of lower back, initial encounter Condition: Stable Critical Care Time: No Referrals: JOSUE LONG [Primary Care Provider] - (Call tomorrow for reevaluation) Instructions: Low Back Pain (DC), Sciatica (DC) Additional Instructions: Take pain medications/muscle relaxants only as needed. Follow-up with primary care physician for reevaluation. Return to ER for intractable pain, numbness tingling weakness of lower extremities/loss of bowel or bladder control. Prescriptions: Hydrocodone/APAP 5/325 [[place] 5/325 mg] 1 each PO Q6H PRN PRN #10 tablet MDD 3 PRN Reason: Pain Cyclobenzaprine HCl 10 mg [Flexeril 10 MG] 10 mg PO BID #12 tablet
[2020-11-01] MEDS ORDERED: Cyclobenzaprine 10 MG ONE (19:50)
[2020-11-01] MEDS ORDERED: MORPHINE SULFATE 4 MG INJ ONE (19:51)
[2020-11-01 21:12] VITALS: BP 132/70; PULSE 81; O2SAT 95
== END 2020-11-01 21:13 | disposition home or self-care (01) ==
LOC: ED 17:38
DX: S39.012A Strain of muscle, fascia and tendon of lower back, initial encounter (principal); M54.32 Sciatica, left side
CPT/HCPCS: 96372; 99284; J2270; A9270-GY

== ENCOUNTER 2021-05-13 07:57 | Day surgery (SDC) | payer MEDICARE ==
--- NOTE | 2021-05-11 15:15 | HP ---
DATE OF SURGERY: 05/13/2021 HISTORY OF PRESENT ILLNESS: The patient presents with complaints of hiatal hernia. The patient reports severe epigastric pain. The patient has been dealing with this severe pain for about three weeks now. The patient states this is getting worse and really bothers her. It does not look like we have done an EGD on this patient in the past. PAST MEDICAL HISTORY: Hypertension, coronary artery disease, hyperlipidemia. PAST SURGICAL HISTORY: Cardiac stent. Colon resection. Cholecystectomy. Hysterectomy. Right knee surgery. ALLERGIES: NKDA. MEDICATIONS: Lisinopril, Plavix, rosuvastatin. FAMILY HISTORY: Liver cancer, heart disease, diabetes. SOCIAL HISTORY: None. REVIEW OF SYSTEMS: CONSTITUTIONAL: Denies fever or chills. CHEST: Denies shortness of breath. CVS: Denies chest pain. ABDOMEN: Reports epigastric pain. Denies nausea, vomiting, diarrhea, constipation or rectal bleeding. PHYSICAL EXAMINATION: GENERAL: No acute distress. CHEST: Nonlabored. No shortness of breath. CVS: Regular rate and rhythm. ABDOMEN: Soft, nontender. IMPRESSION: Severe epigastric pain. PLAN: EGD with Dr. Ramón Nguyen. As dictated by Tena Ramon NP.
[2021-05-13] MEDS ORDERED: Lactated Ringers 1,000 ML IV SCH (08:00)
[2021-05-13] MEDS ORDERED: Lactated Ringers 1,000 ML IV ONE (08:25)
[2021-05-13] MEDS ORDERED: DIPRIVAN 200 MG/20 ML IV ONE (10:27)
[2021-05-13] MEDS ORDERED: Versed 2 MG/2 ML Injection ONE (10:27)
[2021-05-13] MEDS ORDERED: Xylocaine-Mpf 2% 5 Ml Vial ONE (10:27)
[2021-05-13 11:17] VITALS: O2SAT 98
[2021-05-13 11:42] VITALS: BP 173/78; PULSE 77
--- NOTE | 2021-05-13 12:47 | OP ---
SURGERY DATE/TIME: 05/13/2021 1026 PREOPERATIVE DIAGNOSIS: Severe epigastric pain. POSTOPERATIVE DIAGNOSES: 1) Two prepyloric ulcers. 2) A 2-inch hiatal hernia. 3) Gastroesophageal reflux disease grade 2 over 4. PROCEDURE: EGD with cold biopsy for Helicobacter pylori. SURGEON: Ramón Nguyen M.D. ANESTHESIA: MAC. COMPLICATIONS: None. CONDITION: Stable. INDICATION: The patient has severe epigastric pain, referred by Dr. Palencia. She has been on H2 blockers and has not had any relief. DESCRIPTION OF PROCEDURE: Taken to endoscopy. MAC sedation provided. Scope introduced. Pharyngoesophageal junction normal. Esophagus normal down to gastroesophageal junction. A light rim of esophagitis grade 2 and 2-inch hiatal hernia. Fundus and body normal. Pylorus at 7:00 and 9:00, two - 3 mm punctate ulcers were present. A high school admissions representative biopsy of the antrum for CLOtest. Pylorus was cannulated. Duodenal bulb, second portion normal. Scope looped upon itself. Small hiatal hernia. Scope withdrawn. The patient tolerated the procedure satisfactorily. Will place her on Protonix b.i.d. for eight weeks.
== END 2021-05-13 11:40 | disposition home or self-care (01) ==
LOC: SDC 07:57
PROVIDERS: ATTEND Surgery
DX: K25.9 Gastric ulcer, unspecified as acute or chronic, without hemorrhage or perforation (principal); R10.13 Epigastric pain; K44.9 Diaphragmatic hernia without obstruction or gangrene; K21.9 Gastro-esophageal reflux disease without esophagitis; Z79.01 Long term (current) use of anticoagulants
CPT/HCPCS: 87081; 99100; J2250; J2704